=== PATIENT | male | born 1955 | race Caucasian/White ===

== ENCOUNTER → 2018-08-18 | Outpatient (CLI) | payer OTHER | LOC: LAB.O 13:43 | PROVIDERS: ATTEND Nurse Practitioner Family | DX: E86.0 Dehydration (principal) ==

== ENCOUNTER → 2018-09-08 | Outpatient (CLI) | payer OTHER ==
--- NOTE | 2018-09-08 11:07 | CT ---
EXAM DESCRIPTION: Head CT without contrast CLINICAL HISTORY: CONTUSION OF SCALP COMPARISON: None available TECHNIQUE: Noncontrast head CT was performed with routine protocol. FINDINGS: Low density in the right cerebellar hemisphere has an appearance most consistent with an old infarction. Otherwise normal mariee-white matter differentiation. Ventricles and sulci are prominent consistent with age-related cerebral volume loss. Patchy low density areas in the cerebral white matter are consistent with chronic microvascular ischemic changes. No high density hemorrhage, focal edema or shift of the midline. No sulcal effacement. Normal orbital contents. Basilar cisterns appear clear. Intact calvarium with no fracture or lytic lesion. Normal aeration of tympanic cavities and mastoid air cells. No fluid levels in the paranasal sinuses. Skull base appears intact. Symmetrical internal auditory canals. Coronal and sagittal reformatted images confirm the findings. 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 No acute intracranial pathologic process. This exam was performed according to our departmental dose-optimization program, which includes automated exposure control, adjustment of the mA and/or kV according to patient size and/or use of iterative reconstruction technique. Total DLP equals 959.97. mGycm. Electronically signed by: Thomas Bonilla MD 09/08/2018 11:06 AM [facility]
== END ==
LOC: LAB.O 10:22
PROVIDERS: ATTEND Nurse Practitioner Family
DX: S00.03XD Contusion of scalp, subsequent encounter (principal); R11.11 Vomiting without nausea